=== PATIENT | male | born 1955 | race Caucasian/White ===

== ENCOUNTER 2020-06-19 21:16 | Emergency (ER) | payer MEDICARE, OTHER, SELFPAY ==
[2020-06-19 21:25] VITALS: BP 133/71; PULSE 78; RESP 20; TEMP 36.4; O2SAT 100
--- NOTE | 2020-06-19 21:30 | ED_ITS ---
HPI - Syncope General Chief Complaint: Syncope Stated Complaint: FAINTED HIT BACK OF HEAD Time Seen by Provider: 06/19/20 21:22 Source: patient Mode of arrival: Ambulatory Limitations: no limitations History of Present Illness HPI narrative: 65M never smoker without significant medical history presents with family for a syncopal episode with head injury early today. He is very healthy and very active but felt a bit tired yesterday. He states he was up 4 times last night to urinate and urinated about 10 times over the day. He denies dysuria, urgency, or hematuria. He was feeling poorly this afternoon and then w ent to lunch with his brother, he had some alcohol and a steak and felt nauseated. He went to the car and was feeling lightheaded. He stood up to go from the front to the backseat and got extremely lightheaded and then passed out, falling backwards and striking his head. He did lose control of his bladder. He quickly returned to his baseline and was evaluated by paramedics and then encouraged to seek medical treatment. He denies any chest pain or palpitations. He denies any change in medications or diet. He denies any blood thinners. He states this has happened to him a few times in his life. MD complaint: loss of consciousness Onset (ago): hour(s) -: second(s) Description of event: incontinence Prodromal symptoms: lightheaded Witnessed: no Context: standing up Injuries sustained associated with event: head Current symptoms: none Treatments prior to arrival: none Related Data Allergies Allergy/AdvReac Type Severity Reaction Status Date / Time No Known Drug Allergies Allergy Verified 06/19/20 21:42 Review of Systems Constitutional Constitutional: Denies chills, Denies fatigue, Denies fever(s), Denies frequent falls, Denies lethargy and Denies weakness Eyes Eyes: Denies change in vision, Denies eye discharge, Denies irritation and Denies loss of vision ENT Ears, Nose, Mouth, and Throat: Denies change in voice, Denies dizziness, Denies neck pain, Denies sore throat and Denies throat swelling Cardiovascular Cardiovascular: Denies chest pain, Reports syncope, Denies irregular heart rhythm, Reports lightheadedness, Denies palpitations, Denies dyspnea, Denies dyspnea on exertion and Denies orthopnea Respiratory Respiratory: Denies cough, Denies dyspnea, Denies dyspnea on exertion and Denies wheezing Gastrointestinal Gastrointestinal: Denies abdominal pain, Denies change in bowel habits, Denies diarrhea, Denies nausea and Denies vomiting Genitourinary Genitourinary: Reports nocturia Genitourinary: Reports nocturia Musculoskeletal Musculoskeletal: Denies neck pain and Denies numbness Integumentary/Breasts Skin/Breast: Denies pruritus, Denies erythema, Denies rash and Denies wounds Neurologic Neurologic: Denies behavioral changes, Denies confusion, Denies dizziness, Re ports syncope, Denies frequent falls, Denies loss of vision, Denies numbness and Denies weakness Psychiatric Psychiatric: Denies anxiety, Denies behavioral changes, Denies confusion, Denies depression, Denies homicidal ideation and Denies suicidal ideation Endocrine Endocrine: Denies fatigue, Denies flushing and Denies palpitations Hematologic/Lymphatic Hematologic/Lymphatic: Denies easy bruising Allergic/Immunologic Allergic/Immunologic: Denies urticaria, Denies throat swelling and Denies wheezing Patient History Social History Smoking Status: Never smoker Smoking Status: Never smoker alcohol intake frequency: a few times a month Substance Use Type: does not use Exam Narrative Exam Narrative: GENERAL: [65] year old patient appears stated age. Well- nourished, well-developed patient, in mild distress. HEAD: Atraumatic. Normocephalic. EYES: Pupils equal round and reactive. Extraocular motions intact. No scleral icterus. No injection or drainage. ENT: Nose without bleeding, purulent drainage. Throat without erythema, tonsillar hypertrophy or exudate. Airway patent. NECK: Trachea midline. Non tender CARDIOVASCULAR: Regular rate and rhythm without murmurs, gallops, or rubs. RESPIRATORY: Clear to auscultation. Breath sounds equal bilaterally. No wheezes, rales, or rhonchi. GASTROINTESTINAL: Abdomen soft, non-tender, nondistended. EXTREMITIES: No edema or joint tenderness. BACK: Nontender without deformity or crepitance. No flank tenderness. NEURO: AOx3. SKIN: No rash or erythema of visible areas NIH Stroke Scale 1a. LOC: Patient is alert and keenly responsive (0) 1b. LOC Questions: Patient answers both LOC questions accurately (0) 1c. LOC Commands: Patient performs both tasks correctly (0) 2. Best Gaze: Normal (0) 3. Visual: No visual loss (0) 4. Facial palsy: Normal symmetrical movements (0) 5. Motor arm: No drift (0) 6. Motor leg: No drift (0) 7. Limb ataxia: Absent (0) 8. Sensory: Normal (0) 9. Best language: No aphasia; normal (0) 10. Dysarthria: Normal (0) 11. Extinction and inattention: No abnormality (0) NIHSS: 0 Initial Vital Signs Initial Vital Signs: Vital Signs Temperature 97.6 F 06/19/20 21:25 Pulse Rate 78 06/19/20 21:25 Respiratory Rate 20 06/19/20 21:25 Blood Pressure 133/71 06/19/20 21:25 Pulse Oximetry 100 06/19/20 21:25 Course Course Course Narrative: patient shows tremendous improvement after fluids. He has no orthostatic findings and ambulates without difficulty. He developed polyuria in the absence of obvious source such as excessive drinking, administration of known osmotic agent, signs of diabetes. He has been drinking less water than normal in the setting of polyuria and likely became dehydrated. He felt a bit weak and upon changing positions became quite lightheaded and had a syncopal episode. Symptoms were provoked and he had a significant prodromal set of symptoms. Cardiac etiology considered but thought less likely given history and physical. He admits to polyuria and labs demonstrate normal sodium and appropriately concentrated urine. FeNa calculated and also suggests a pre-renal explanation. I did discuss the case with nephrology at [facility] who agrees that DI needs to be considered, but that a workup as an outpatient and orchestrated by PCP is appropriate. Patient has had extensive discussions at the bedside and understands return precautions and need for follow up. His brother has been with him and they both understand and are in complete agreement with the plan. Orders Ordered: ED Orders 06/19/20 21:31 CT head/brain wo con Stat EKG-12 Lead Stat 06/19/20 21:32 XR acute abdomen series Stat 06/19/20 21:35 Complete Blood Count AUTO DIFF Stat Comprehensive Metabolic Panel Stat D Dimer Stat Magnesium Stat NT-proBNP (BNP-Adult 18+) Stat Osmolality, Serum Stat Prothrombin Time INR Stat Troponin & CK Cardiac Panel Stat 06/19/20 22:20 Creatinine Urine Random Stat Sodium Urine Random Stat Discontinued Medications Al Hydrox/Mg Hydrox/Simethicone 20 ml/ Lidocaine HCl 15 ml 0 ml PO NOW ONE Stop: 06/19/20 21:32 Last Admin: 06/19/20 21:47 Dose: Not Given Documented by: CHRISTIE Sodium Chloride (Normal Saline 0.9%) 1,000 mls @ 150 mls/hr IV CONT SHAWN Last Infusion: 06/20/20 00:43 Dose: 0 mls/hr Documented by: Admin: 06/19/20 21:53 Dose: 1,000 mls/hr Documented by: CHRISTIE Consultations Consultation #1: case discussed with nephrology, see details above. She recommends outpatient workup through PCP to evaluate for possible DI Vital Signs Vital signs: Vital Signs - 8 hr 06/19/20 21:25 06/19/20 23:20 06/20/20 00:43 Temperature 97.6 F Pulse Rate 78 80 Pulse Rate [Orthostatic Lying] 82 Pulse Rate [Orthostatic Sitting] 80 Pulse Rate [Orthostatic Standing] 85 Respiratory Rate 20 18 Blood Pressure 133/71 149/79 H Blood Pressure [Orthostatic Lying] 141/81 H Blood Pressure [Orthostatic Sitting] 137/79 Blood Pressure [Orthostatic Standing] 138/81 Pulse Oximetry 100 98 MDM - Syncope Lab Data Result diagrams: 06/19/20 21:35 06/19/20 21:35 Labs: Lab Results 06/19/20 06/19/20 06/19/20 Range/Units 21:35 21:35 21:35 WBC 7.9 (4.5-11.0) X10^3/uL RBC 4.88 (4.5-5.9) X10^6/uL Hgb 15.1 (13.5-17.5) g/dL Hct 45.2 (41-53) % MCV 92.6 (80-100) fL MCH 31.0 (26-34) PG MCHC 33.5 (30-36) % RDW 13.9 (11.6-14.8) % Plt Count 246 (150-400) X10^3/uL Neut % (Auto) 69.4 (50-75) % Lymph % (Auto) 16.6 L (25-40) % [place] % (Auto) 9.4 (3-14) % Eos % (Auto) 4.1 H (2-4) % Baso % (Auto) 0.5 (0-2) % Neut # (Auto) 5500 (8586-5680) /uL Lymph # (Auto) 1300 (7789-0356) /uL [place] # (Auto) 700 (0-900) /uL Eos # (Auto) 300 (0-450) /uL Baso # (Auto) 0 (0-100) /uL PT 11.5 (10.1-12.7) SECONDS INR 1.0 (0.9-1.3) D-Dimer < 200 (<230) ng/mL Sodium 138 (137-145) mmol/L Potassium 4.3 (3.4-5.1) mmol/L Chloride 104 (98-107) mmol/L Carbon Dioxide 28 (22-32) mmol/L BUN 21 H (9-20) mg/dL Creatinine 1.14 (0.66-1.25) mg/dL Estimated GFR > 60.0 (>60) mL/min BUN/Creatinine Ratio 18.4 (6-22) Glucose 80 (80-110) mg/dL Calcium 8.7 (8.4-10.2) mg/dL Magnesium 2.4 H (1.6-2.3) mg/dL Total Bilirubin 0.4 (0.2-1.3) mg/dL AST 31 (17-59) IU/L ALT 21 (<50) IU/L Alkaline Phosphatase 59 (38-126) U/L Total Creatine Kinase 60 (55-170) U/L CK-MB (CK-2) TNP CK-MB (CK-2) Rel Index TNP Troponin I < 0.012 (0.01-0.034) ng/mL NT-Pro-B Natriuret Pep 120 (<125) pg/mL Total Protein 7.8 (6.3-8.2) g/dL Albumin 4.3 (3.5-5.0) g/dL Globulin 3.5 (1.7-4.1) g/dL Albumin/Globulin Ratio 1.2 (1.0-2.8) Ur Random Sodium (30-90) mmol/L Urine Creatinine mg/dL 06/19/20 Range/Units 22:20 WBC (4.5-11.0) X10^3/uL RBC (4.5-5.9) X10^6/uL Hgb (13.5-17.5) g/dL Hct (41-53) % MCV (80-100) fL MCH (26-34) PG MCHC (30-36) % RDW (11.6-14.8) % Plt Count (150-400) X10^3/uL Neut % (Auto) (50-75) % Lymph % (Auto) (25-40) % [place] % (Auto) (3-14) % Eos % (Auto) (2-4) % Baso % (Auto) (0-2) % Neut # (Auto) (0271-5438) /uL Lymph # (Auto) (7936-3538) /uL [place] # (Auto) (0-900) /uL Eos # (Auto) (0-450) /uL Baso # (Auto) (0-100) /uL PT (10.1-12.7) SECONDS INR (0.9-1.3) D-Dimer (<230) ng/mL Sodium (137-145) mmol/L Potassium (3.4-5.1) mmol/L Chloride (98-107) mmol/L Carbon Dioxide (22-32) mmol/L BUN (9-20) mg/dL Creatinine (0.66-1.25) mg/dL Estimated GFR (>60) mL/min BUN/Creatinine Ratio (6-22) Glucose (80-110) mg/dL Calcium (8.4-10.2) mg/dL Magnesium (1.6-2.3) mg/dL Total Bilirubin (0.2-1.3) mg/dL AST (17-59) IU/L ALT (<50) IU/L Alkaline Phosphatase (38-126) U/L Total Creatine Kinase (55-170) U/L CK-MB (CK-2) CK-MB (CK-2) Rel Index Troponin I (0.01-0.034) ng/mL NT-Pro-B Natriuret Pep (<125) pg/mL Total Protein (6.3-8.2) g/dL Albumin (3.5-5.0) g/dL Globulin (1.7-4.1) g/dL Albumin/Globulin Ratio (1.0-2.8) Ur Random Sodium 50 (30-90) mmol/L Urine Creatinine 83.9 mg/dL Urine Dip Bedside Urine Glucose Negative Bedside Urine Bilirubin - Negative Bedside Urine Ketone - Negative Urine Specific [place] 1.015 Bedside Urine Occult Blood - Negative Bedside Urine pH 6.0 Bedside Urine Protein - Negative Bedside Urine Urobilinogen - Negative Bedside Urine Nitrite - Negative Bedside Urine Leukocytes - Negative Esterase Discharge Plan Departure Patient Disposition: Home Clinical Impression: Syncope due to orthostatic hypotension Discharge Date/Time: 06/20/20 00:45 Instructions: DI for Syncope in Adults (Fainting) Activity Restrictions/Additional Instructions: *You have been diagnosed with [ syncope ] *What to do: *Follow up with your primary care provider in 2-3 days, call for an ap pointment. Let them know you were seen in the Emergency Department and that we ask that you be seen in follow up *Return to ER if you should have any new, worsening or concerning symptoms
--- NOTE | 2020-06-19 21:31 | DI.CT.S_ITS ---
PROCEDURE: CT HEAD/BRAIN WO CON INDICATIONS: syncope with head injury TECHNIQUE: Noncontrast 4.5 mm thick angled axial sections acquired from the foramen magnum to the vertex, with coronal and sagittal reformats. For radiation dose reduction, the following was used: automated exposure control, adjustment of mA and/or kV according to patient size. COMPARISON: [facility], CR, XR ACUTE ABDOMEN SERIES, 06/19/2020, 21:47. FINDINGS: Image quality: Excellent. CSF spaces: Basal cisterns are patent. No extra-axial fluid collections. The ventricles are symmetric in size and shape. Brain: No intracranial bleeds or masses. There is cerebral volume loss for age, with resultant ventricular and sulcal prominence. There are periventricular and deep white matter chronic small vessel ischemic changes. There is intracranial internal carotid artery atherosclerosis. Skull and face: Calvarium and visualized facial bones appear intact, without suspicious lesions. Sinuses: There is moderate mucosal thickening seen within the right maxillary sinus and the ethmoid air cells. Mild mucosal thickening is seen elsewhere within the visualized paranasal sinuses. No abnormal fluid is seen within the mastoid air cells. IMPRESSION: No acute intracranial hemorrhage is seen. Unremarkable intracranial study for age. This Note: No significant discrepancy from the preliminary report. Dictated by: Trip Kraus M.D. on 06/20/2020 at 10:32 Approved by: Trip Kraus M.D. on 06/20/2020 at 10:33
--- NOTE | 2020-06-19 21:32 | DI.RAD.S_ITS ---
PROCEDURE: XR ACUTE ABDOMEN SERIES INDICATIONS: Abdominal pain TECHNIQUE: One view chest and two views of the abdomen were acquired. COMPARISON: [facility], CT, CT HEAD/BRAIN WO CON, 06/19/2020, 21:57. FINDINGS: Surgical changes and devices: None. Chest: An incomplete inspiratory result is noted, causing a crowded appearance to the lung markings. No focal infiltrates are seen. No pneumothorax or significant pleural effusions are seen. Heart size is normal. No pneumoperitoneum. Abdomen: Bowel gas pattern is normal. A moderate to prominent amount of stool is seen within the colon, with the rectal vault measuring nearly 8 cm transversely. There is a likely nonobstructing left-sided kidney stone that measures up to 4 mm. Visualized solid organ contours appear normal. Bones: No suspicious bony lesions. Age-appropriate bony degenerative changes are seen. Moderate dextroconvex thoracolumbar scoliosis. IMPRESSION: There is a moderate amount of stool seen within the colon, with a prominent amount of stool seen within the rectum. Please correlate with an underlying history of constipation. Likely nonobstructing left-sided kidney stone. Moderate dextroconvex thoracolumbar scoliosis noted. Dictated by: Trip Kraus M.D. on 06/20/2020 at 10:30 Approved by: Trip Kraus M.D. on 06/20/2020 at 10:32
[2020-06-19 21:46] LABS: Add Manual Diff / Slide Review NO; Basophils Absolute Auto 0 /uL (0-100); Basophils Percent Auto 0.5 % (0-2); Eosinophils Absolute Auto 300 /uL (0-450); Eosinophils Percent Auto 4.1 % (2-4); Hematocrit 45.2 % (41-53); Hemoglobin 15.1 g/dL (13.5-17.5); Lymphocytes Absolute Auto 1300 /uL (1100-4500); Lymphocytes Percent Auto 16.6 % (25-40); Mean Corpuscular HGB Conc 33.5 % (30-36); Mean Corpuscular Volume 92.6 fL (80-100); Monocytes Absolute Auto 700 /uL (0-900); Monocytes Percent Auto 9.4 % (3-14); Neutrophils Absolute Auto 5500 /uL (1500-7000); Neutrophils Percent Auto 69.4 % (50-75); Platelet Count 246 X10^3/uL (150-400); Red Blood Cell Count 4.88 X10^6/uL (4.5-5.9); Red Cell Distribution Width 13.9 % (11.6-14.8); White Blood Cell Count 7.9 X10^3/uL (4.5-11.0)
[2020-06-19] MEDS: SODIUM CHLORIDE 0.9% 1,000 ML 1000 ML IV (21:53)
[2020-06-19 21:56] LABS: Alanine Aminotransferase 21 IU/L (<50); Albumin 4.3 g/dL (3.5-5.0); Albumin Globulin Ratio 1.2 (1.0-2.8); Alkaline Phosphatase 59 U/L (38-126); Aspartate Aminotransferase 31 IU/L (17-59); BUN Creatinine Ratio 18.4 (6-22); Bilirubin Total 0.4 mg/dL (0.2-1.3); Blood Urea Nitrogen 21 mg/dL (9-20); Calcium 8.7 mg/dL (8.4-10.2); Carbon Dioxide 28 mmol/L (22-32); Chloride 104 mmol/L (98-107); Creatine Kinase 60 U/L (55-170); Estimated Glomerular Filt Rate > 60.0 mL/min (>60); Globulin 3.5 g/dL (1.7-4.1); Glucose 80 mg/dL (80-110); HEMOLYSIS 28 (0-50); Magnesium 2.4 mg/dL (1.6-2.3); Potassium 4.3 mmol/L (3.4-5.1); Prothrombin Time 11.5 SECONDS (10.1-12.7); Sodium 138 mmol/L (137-145); Total Protein 7.8 g/dL (6.3-8.2)
--- NOTE | 2020-06-19 22:03 | PC.NURSE ---
Patient came into the Ed with complaints of syncope. He was eating a meal and felt faint and passed out for a period of seconds. He then went to lay down in the car and passed out again for a sec. He stated that he has had 5 episodes similar to this one. He said in the passed it was attributed with dehydration.
[2020-06-19 22:08] LABS: NT-proBNP (BNP-Adult 18+) 120 pg/mL (<125); Troponin I < 0.012 ng/mL (0.01-0.034)
[2020-06-19 22:26] LABS: D Dimer < 200 ng/mL (<230)
[2020-06-19 23:20] VITALS: BP 137/79; BP 138/81; BP 141/81; PULSE 80; PULSE 82; PULSE 85
[2020-06-19 23:40] LABS: Creatinine Urine Random 83.9 mg/dL; Sodium Urine Random 50 mmol/L (30-90)
[2020-06-20 00:43] VITALS: BP 149/79; PULSE 80; RESP 18; O2SAT 98
[2020-06-22 15:11] LABS: Osmolality, Serum 287 mOsmol/kg (280-301)
== END 2020-06-20 00:45 | disposition home or self-care (01) ==
PROVIDERS: Emergency Provider Emergency Medicine
DX: I95.1 Orthostatic hypotension (principal); R42 Dizziness and giddiness; R35.1 Nocturia
CPT/HCPCS: 36415; 70450; 74022; 80053; 81003; 82550; 82570; 83735; 83880; 83930; 84300; 84484; 85025; 85379; 85610; 93005; 93010; 96360; 96361; 99284; 99285